=== PATIENT | female | born 1935 | race Caucasian/White ===

== ENCOUNTER 2019-03-23 18:40 | Emergency (ER) | payer MEDICARE, BC ==
[2019-03-23] MEDS ORDERED: DOXYcycline CAP(*) 100 MG PO ONE (19:19)
--- NOTE | 2019-03-23 19:19 | ED ---
Skin Complaint - HPI Summary HPI Summary: 83-year-old female presents with rash to her right leg for the past couple days. noticed some blood on leg a couple days ago. She states that it started as a small lesion and then spread on the right thigh. She denies any fevers or chills. She states area is warm. Denies any swelling. No calf pain. - History of Current Complaint Chief Complaint: EDExtremityLower Time Seen by Provider: 03/23/19 19:00 Stated Complaint: RED SPOT ON RT LEG PER PT Pain Intensity: 0 - Additional Pertinent History Primary Care Physician: SAMEERA - Allergy/Home Medications Allergies/Adverse Reactions: Allergies Allergy/AdvReac Type Severity Reaction Status Date / Time amoxicillin Allergy Rash Verified 03/23/19 18:51 Sulfa (Sulfonamide Allergy GI Upset Verified 03/23/19 18:51 Antibiotics) PMH/Surg Hx/FS Hx/Imm Hx Endocrine/Hematology History: Denies: Hx Diabetes Cardiovascular History: Reports: Hx Angina, Hx Coronary Artery Disease, Hx Hypercholesterolemia, Hx Hypertension, Hx Myocardial Infarction Denies: Hx Valvular Heart Disease Respiratory History: Denies: Hx Asthma, Hx Chronic Obstructive Pulmonary Disease (COPD) Musculoskeletal History: Reports: Hx Osteoporosis Sensory History: Reports: Hx Contacts or Glasses Opthamlomology History: Reports: Hx Contacts or Glasses Infectious Disease History: No Infectious Disease History: Denies: Hx Clostridium Difficile, Hx Hepatitis, Hx Human Immunodeficiency Virus (HIV), Hx Shingles, Hx Tuberculosis, Traveled Outside the [place] in Last 30 Days - Family History Known Family History: Negative: Cardiac Disease - Social History Alcohol Use: Daily Alcohol Amount: 4oz wine/night Substance Use Type: Reports: None Smoking Status (MU): Never Smoked Tobacco Review of Systems Negative: Fever Negative: Chest Pain Negative: Shortness Of Breath Positive: Rash All Other Systems Reviewed And Are Negative: Yes Physical Exam Triage Information Reviewed: Yes Vital Signs On Initial Exam: Initial Vitals Temp Pulse Resp BP Pulse Ox 98.0 F 71 19 156/106 98 03/23/19 18:46 03/23/19 18:46 03/23/19 18:46 03/23/19 18:46 03/23/19 18:46 Vital Signs Reviewed: Yes Appearance: Positive: Well-Appearing Skin: Positive: Warm, Dry, Other - erythema to right thigh that is 6cm by 4cm that is warm to touch Head/Face: Positive: Normal Head/Face Inspection Eyes: Positive: Normal, Conjunctiva Clear ENT: Positive: Pharynx normal Respiratory/Lung Sounds: Positive: Clear to Auscultation, Breath Sounds Present Cardiovascular: Positive: Normal, RRR Musculoskeletal: Positive: Strength/ROM Intact - right leg, Other - good pulses, . Negative: Edema Right Neurological: Positive: Normal Psychiatric: Positive: Normal Diagnostics - Vital Signs Vital Signs Temp Pulse Resp BP Pulse Ox 03/23/19 18:46 98.0 F 71 19 156/106 98 - Laboratory Lab Statement: Any lab studies that have been ordered have been reviewed, and results considered in the medical decision making process. Course/Dx - Course Course Of Treatment: 83-year-old female presents with rash to her right leg for the past couple days. noticed some blood on leg a couple days ago. She states that it started as a small lesion and then spread on the right thigh. She denies any fevers or chills. She states area is warm. Denies any swelling. No calf pain. On exam has 6cm by 4cm area of erythema on right thigh. Appears most consistent with cellulitis. We'll treat with doxycycline. Patient understands agrees with plan. - Differential Diagnoses - Skin Complaint Differential Diagnoses: Abscess, Cellulitis, Contact Dermatitis - Diagnoses Provider Diagnoses: Cellulitis of right leg Discharge - Sign-Out/Discharge Documenting (check all that apply): Patient Departure Patient Received Moderate/Deep Sedation with Procedure: No - Discharge Plan Condition: Good Disposition: HOME Prescriptions: DOXYcycline CAP(*) [DOXYcycline 100MG CAP(*)] 100 mg PO BID #[id number] cap Patient Education Materials: Cellulitis (ED) Referrals: Brody Whitfield MD [Medical Doctor] - Additional Instructions: Take doxycycline twice a day for 10 days, take with food Follow up with primary within 3 days Return to ED if develop fever, area of redness spreads after two days, or any new or worsening symptoms - Billing Disposition and Condition Condition: GOOD Disposition: Home
[2019-03-23 19:28] VITALS: BP 141/89
== END 2019-03-23 19:27 | disposition home or self-care (01) ==
LOC: ED 18:40
DX: L03.115 Cellulitis of right lower limb (principal); I10 Essential (primary) hypertension; I25.10 Atherosclerotic heart disease of native coronary artery without angina pectoris; Z88.1 Allergy status to other antibiotic agents; Z88.2 Allergy status to sulfonamides
CPT/HCPCS: 99282; A9270-GY